=== PATIENT | male | born 1965 | race Caucasian/White ===

== ENCOUNTER 2017-08-30 14:15 | Emergency (ER) | payer OTHER ==
[2017-08-30] MEDS ORDERED: Lidocaine 1% INJ* 10 MG/ML 30 ML SDV INJ ONE (15:32)
[2017-08-30] MEDS ORDERED: Ibuprofen TAB* 800 MG PO ONE (15:34)
--- NOTE | 2017-08-30 15:43 | ED ---
Lower Extremity - HPI Summary HPI Summary: Patient here with right toenail avulsion prior to arrival. Reports he went to open a door and the door caught the edge of his nail repairing it back towards him. He has some pain but denies numbness or weakness. Minimal bleeding. He is unsure if his tetanus is up-to-date. He is concerned about healing as he is a high school assistant football coach and plans on taking a hike in 4 weeks in [place]. No other injuries to report. - History of Current Complaint Chief Complaint: EDExtremityLower Stated Complaint: BIG TOE INJURY Time Seen by Provider: 08/30/17 14:32 Hx Obtained From: Patient Pain Intensity: 6 - Allergies/Home Medications Allergies/Adverse Reactions: Allergies Allergy/AdvReac Type Severity Reaction Status Date / Time No Known Allergies Allergy Verified 05/22/12 20:22 Home Medications: Home Medications Levothyroxine TAB* [Synthroid TAB*] 175 mcg PO DAILY 08/30/17 [History Confirmed 08/30/17] predniSONE TAB* [Deltasone 10 MG TAB*] 10 mg PO SEE INSTRUCTIONS 08/30/17 [ History Confirmed 08/30/17] PMH/Surg Hx/FS Hx/Imm Hx Previously Healthy: Yes Endocrine/Hematology History: 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 Denies: Hx Anticoagulant Therapy, Hx Blood Disorders Musculoskeletal History: Reports: Hx Gout Psychiatric History: Denies: Hx Eating Disorder, Hx of Violent Episodes Against Others - Immunization History Immunizations Up to Date: Unable to Obtain/Confirm Infectious Disease History: No Infectious Disease History: Denies: Hx of Known/Suspected MRSA, Traveled Outside the in Last 30 Days - Social History Occupation: Employed Full-time Lives: With Family Alcohol Use: Rare Hx Substance Use: No Substance Use Type: Reports: None Hx Tobacco Use: No Smoking Status (MU): Never Smoked Tobacco Review of Systems Constitutional: Negative Positive: no symptoms reported Musculoskeletal: Negative Skin: Other - nail avulsion Neurological: Negative Positive: Anxious All Other Systems Reviewed And Are Negative: Yes Physical Exam Triage Information Reviewed: Yes Vital Signs On Initial Exam: Initial Vitals Temp Pulse Resp BP Pulse Ox 97.3 F 92 16 158/98 96 08/30/17 14:23 08/30/17 14:23 08/30/17 14:23 08/30/17 14:23 08/30/17 14:23 Vital Signs Reviewed: Yes Appearance: Positive: Well-Appearing, Well-Nourished, Pain Distress - mild Skin: Positive: Warm, Skin Color Reflects Adequate Perfusion - Rt hallux nail avulsed almost completely from nailbed- minimal bleeding (dried - no active bleeding) Head/Face: Positive: Normal Head/Face Inspection ENT: Positive: Hearing grossly normal Respiratory/Lung Sounds: Positive: Breath Sounds Present Cardiovascular: Positive: Pulses are Symmetrical in both Upper and Lower Extremities Musculoskeletal: Positive: Normal, Strength/ROM Intact Neurological: Positive: Normal, Sensory/Motor Intact Psychiatric: Positive: Anxious Procedures - Procedure Summary Procedure Summary: Hallux digital block: base cleaned with Alcohol x 3 and injected with 1% lidocaine. Nail removed w/ hemostats. Minimal blood loss. Wound cleaned with antiseptic, saline and debrided and dressed w/ xeroform and gauze. Pt tolerated well. Diagnostics - Vital Signs Vital Signs Temp Pulse Resp BP Pulse Ox 08/30/17 14:23 97.3 F 92 16 158/98 96 - Laboratory Lab Statement: Any lab studies that have been ordered have been reviewed, and results considered in the medical decision making process. Lower Extremity Course/Dx - Diagnoses Provider Diagnoses: Nail avulsion of toe Discharge - Sign-Out/Discharge Documenting (check all that apply): Discharge/Admit/Transfer - Discharge Plan Condition: Stable Disposition: HOME Prescriptions: traMADol TAB* [Ultram*] 50 mg PO BEDTIME PRN #4 tab MDD 1 PRN Reason: Pain Patient Education Materials: Nail Avulsion (ED), Nail Removal (ED) Referrals: Devendra Sky MD [Primary Care Provider] - Additional Instructions: Soak toe a few times a day in epsom salt - gently wash and rinse then dress with triple antibiotic ointment and clean gauze bandage. Toe bed should dry out in about 1 week. The toe nail should grow back in 3 months. If you develop redness, swelling, purulent drainage, streaking, fever, or chills, seek medical attention sooner. - Billing Disposition and Condition Condition: STABLE Disposition: Home
[2017-08-30] MEDS ORDERED: Tetan/Diph/Pertus SYR(Tdap)* 0.5 ML SYR(BOOSTRIX) use SYR IM ONE (16:17)
[2017-08-30 16:28] VITALS: BP 132/73
== END 2017-08-30 16:27 | disposition home or self-care (01) ==
LOC: ED 14:15
DX: S91.201A Unspecified open wound of right great toe with damage to nail, initial encounter (principal); W22.8XXA Striking against or struck by other objects, initial encounter; Y92.9 Unspecified place or not applicable; Z23 Encounter for immunization
CPT/HCPCS: 90471; 90715; 99283; A9270-GY